=== PATIENT | female | born 2000 | race Caucasian/White ===

== ENCOUNTER 2018-09-30 21:04 | Emergency (ER) | payer OTHER ==
[~2018-09-30] VITALS: Ht 167.6 cm; Wt 122.0 kg
[2018-09-30 21:44] VITALS: BP 132/57
== END 2018-09-30 21:44 | disposition home or self-care (01) ==
LOC: ED 21:04
DX: M79.10 Myalgia, unspecified site (principal); J02.9 Acute pharyngitis, unspecified; R13.10 Dysphagia, unspecified; Z98.890 Other specified postprocedural states

== ENCOUNTER 2020-01-19 16:11 | Emergency (ER) | payer OTHER ==
[~2020-01-19] VITALS: Ht 162.6 cm; Wt 101.6 kg
[2020-01-19 16:27] VITALS: Ht 162.6 cm; Wt 101.6 kg
[2020-01-19 17:49] LABS: BASOPHIL % 0.3 % (0-2); PLATELET COUNT 313 x10^3mcL (130-400); RED CELL DISTRIBUTION WIDTH 13.6 % (11.5-14.5)
[2020-01-19 18:16] LABS: CARBON DIOXIDE 25.7 mmol/L (21-32); CHLORIDE SERUM 105 mmol/L (98-107); CREATININE SERUM 0.9 mg/dL (0.6-1.0); GFR1 > 60 mL/min; GLUCOSE SERUM 100 mg/dL (74-106); POTASSIUM SERUM 4.2 mmol/L (3.5-5.1); SODIUM SERUM 141 mmol/L (136-145)
[2020-01-19 18:21] LABS: ALBUMIN 4.1 g/dL (3.4-5.0); ALKALINE PHOSPHATASE 80 U/L (46-116); ALT/SGPT 54 U/L (14-59); AST/SGOT 86 U/L (15-37); BILIRUBIN TOTAL 0.35 mg/dL (0.20-1.00); LIPASE 125 IU/L (73-393); TOTAL PROTEIN, SERUM 7.8 g/dL (6.4-8.2)
[2020-01-19 18:49] VITALS: BP 96/54
== END 2020-01-19 18:49 | disposition home or self-care (01) ==
LOC: ED 16:11
PROVIDERS: Emergency Medicine
DX: K80.20 Calculus of gallbladder without cholecystitis without obstruction (principal); Z98.890 Other specified postprocedural states
CPT/HCPCS: Q0162